=== PATIENT | male | born 1970 | race Asian ===

== ENCOUNTER 2016-03-10 09:02 | Inpatient (IN) | payer OTHER ==
[~2016-03-10] VITALS: Ht 175.3 cm; Wt 60.8 kg
[~2016-03-10 09:02] MED LIST: AMLO10TA2 PO; CINA90TA PO; CLO01T PO; FURO20TA PO; MAGN84TA4 PO; MULT-397 PO; OMEP20TA63 PO; PRED5PAK2 PO; PROGRAF PO; SEVE800T PO; SIMV10TA73 PO; TACR1CAP4 PO; TAM04C PO; [UNRECOGNIZED DRUG - CODE] EX; [UNRECOGNIZED DRUG - CODE] PO
[2016-03-10 09:56] LABS: Basophils # (auto) 0 uL; Basophils % (auto) 0.3 % (0.0-2.0); Eosinophils # (auto) 0.3 uL; Eosinophils % (auto) 3.7 % (0.0-7.0); Hematocrit 34.8 % (41.0-53.0); Hemoglobin 11.2 g/dL (13.5-17.5); Lymphocytes # (auto) 1.1 uL; Lymphocytes % (auto) 15.9 % (10.0-50.0); Mean Corpuscular Hgb Conc. 32.1 g/dL (32.0-36.0); Mean Corpuscular Volume 96.5 fL (80.0-100.0); Mean Platelet Volume 7.3 fL (7.4-10.4); Monocytes # (auto) 0.3 uL; Monocytes % (auto) 4.7 % (0.0-12.0); Neutrophils # (auto) 5.2 uL; Neutrophils % (auto) 75.4 % (37.0-80.0); Platelet Count (auto) 220 10^3/uL (140-450); Red Cell Distribution Width 15.1 % (11.6-16.0); White Blood Cell 6.9 10^3/uL (4.4-10.8)
[2016-03-10 10:20] LABS: Albumin 3.6 g/dL (3.4-5.0); BUN/Creatinine Ratio 3.1; Bilirubin, Total 0.6 mg/dL (0.2-1.0); Calcium 9.2 mg/dL (8.5-10.1); Magnesium 2.2 mg/dL (1.6-2.6); Potassium 3.8 mmol/L (3.5-5.1); Total Protein 8.3 g/dL (6.4-8.2)
[2016-03-10] MEDS ORDERED: MORPHINE SULFATE 4 MG/ML SYRG IV ONE ×2 (10:30→13:45)
[2016-03-10] MEDS ORDERED: ONDANSETRON HCL 4 MG/2 ML VIAL IV ONE ×2 (10:30→13:45)
[2016-03-10] MEDS ORDERED: cloNIDine HCL 0.1 MG TAB PO PRN (15:15)
[2016-03-10] MEDS ORDERED: amLODIPine BESYLATE 5 MG TAB PO ONE (15:30)
[2016-03-10] MEDS ORDERED: DEXTROSE (50%) 50ML SYRG IV PRN (15:30)
[2016-03-10] MEDS ORDERED: ONDANSETRON HCL 4 MG/2 ML VIAL IV PRN (15:30)
[2016-03-10] MEDS ORDERED: B-COMPLEX W/ C & FOLIC ACID(NEPHROVITE TAB) PO ONE (15:30)
[2016-03-10] MEDS ORDERED: ALLOPURINOL 100 MG TAB PO ONE (15:30)
[2016-03-10] MEDS ORDERED: PANTOPRAZOLE 40 MG TAB PO ONE (15:30)
[2016-03-10] MEDS ORDERED: NITROGLYCERIN 0.4 MG SL TAB SL PRN (15:30)
[2016-03-10] MEDS ORDERED: FUROSEMIDE 20 MG TAB PO ONE (15:30)
[2016-03-10] MEDS ORDERED: HYDROcodone-ACET 5/325MG TAB PO PRN (15:30)
[2016-03-10] MEDS ORDERED: cefTRIAXone 1GM/50ML D5W 50 ML IV ONE (15:30)
[2016-03-10] MEDS ORDERED: PROMETHAZINE HCL 25 MG/ML 1ML IV PRN (15:30)
[2016-03-10] MEDS ORDERED: MORPHINE SULF INJ 2 MG/ML SYRINGE 1ML IV PRN (15:30)
[2016-03-10] MEDS ORDERED: predniSONE 5 MG TAB PO ONE (15:30)
[2016-03-10] MEDS ORDERED: ACETAMINOPHEN 325 MG TAB PO PRN (15:30)
[2016-03-10] MEDS ORDERED: TEMAZEPAM 15 MG CAP PO PRN (15:30)
[2016-03-10] MEDS ORDERED: DOCUSATE SOD 100 MG CAP PO PRN (15:30)
[2016-03-10] MEDS: InsuLIN REG 1unit/0.01ml Soln (100units/ml) SC SCH ×2 (17:00→22:00)
[2016-03-10] MEDS: ACCU-CHEK COMFORT CURVE STRIP VI SCH ×2 (17:00→22:10)
[2016-03-10 17:32] VITALS: BP 174/96
[2016-03-10] MEDS: SEVELAMER 800 MG TAB PO SCH (17:54)
[2016-03-10] MEDS: TAMSULOSIN HYDROCHLORIDE 0.4 MG CAP PO SCH (17:54)
[2016-03-10] MEDS: MAG PO SCH ×2 (17:58→22:00)
[2016-03-10 21:46] VITALS: BP 135/69
[2016-03-10] MEDS ORDERED: FAMOTIDINE 20 MG TAB PO SCH (22:00)
[2016-03-10] MEDS ORDERED: TACROLIMUS 1 MG CAP PO SCH (22:00)
[2016-03-10] MEDS: TACROLIMUS 1 MG CAP PO SCH (22:10)
[2016-03-10] MEDS: ATORVASTATIN 20 MG TAB PO SCH (22:10)
[2016-03-10] MEDS: SODIUM CHLOR 0.9% PF (SALINE LOCK) 10ML VIAL IV SCH (22:11)
[2016-03-11 05:43] VITALS: BP 134/71
[2016-03-11] MEDS: MAG PO SCH ×4 (06:00→22:00)
[2016-03-11] MEDS: SODIUM CHLOR 0.9% PF (SALINE LOCK) 10ML VIAL IV SCH ×3 (06:02→22:03)
[2016-03-11] MEDS: ACCU-CHEK COMFORT CURVE STRIP VI SCH ×2 (06:43→11:34)
[2016-03-11] MEDS: InsuLIN REG 1unit/0.01ml Soln (100units/ml) SC SCH ×2 (06:43→11:30)
[2016-03-11 06:47] LABS: Basophils # (auto) 0 uL; Basophils % (auto) 0.5 % (0.0-2.0); Eosinophils # (auto) 0.1 uL; Eosinophils % (auto) 2.5 % (0.0-7.0); Hematocrit 30.3 % (41.0-53.0); Hemoglobin 9.9 g/dL (13.5-17.5); Lymphocytes % (auto) 17.1 % (10.0-50.0); Mean Corpuscular Hemoglobin 31.2 pg (28.0-32.0); Mean Corpuscular Hgb Conc. 32.7 g/dL (32.0-36.0); Mean Corpuscular Volume 95.3 fL (80.0-100.0); Monocytes # (auto) 0.5 uL; Monocytes % (auto) 8.3 % (0.0-12.0); Neutrophils # (auto) 4.1 uL; Neutrophils % (auto) 71.6 % (37.0-80.0); Platelet Count (auto) 182 10^3/uL (140-450); Red Cell Distribution Width 15.2 % (11.6-16.0); White Blood Cell 5.7 10^3/uL (4.4-10.8)
[2016-03-11 07:09] LABS: Albumin 2.9 g/dL (3.4-5.0); Calcium 8.6 mg/dL (8.5-10.1); Potassium 5.2 mmol/L (3.5-5.1)
[2016-03-11 07:18] LABS: BUN/Creatinine Ratio 4.3; Bilirubin, Total 0.5 mg/dL (0.2-1.0); Total Protein 7.4 g/dL (6.4-8.2)
[2016-03-11 08:36] VITALS: BP 130/76
[2016-03-11] MEDS: MORPHINE SULF INJ 2 MG/ML SYRINGE 1ML IV PRN ×3 (08:51→18:08)
[2016-03-11] MEDS: SEVELAMER 800 MG TAB PO SCH ×3 (08:56→17:34)
[2016-03-11] MEDS: cefTRIAXone 1GM/50ML D5W 50 ML IV SCH (08:57)
[2016-03-11] MEDS: SENSIPAR 90 MG PO SCH (10:00)
[2016-03-11] MEDS: PANTOPRAZOLE 40 MG TAB PO SCH (10:38)
[2016-03-11] MEDS: B-COMPLEX W/ C & FOLIC ACID(NEPHROVITE TAB) PO SCH (10:38)
[2016-03-11] MEDS: FUROSEMIDE 20 MG TAB PO SCH (10:39)
[2016-03-11] MEDS: predniSONE 5 MG TAB PO SCH (10:39)
[2016-03-11] MEDS: amLODIPine BESYLATE 5 MG TAB PO SCH (10:39)
[2016-03-11] MEDS: ALLOPURINOL 100 MG TAB PO SCH (10:39)
[2016-03-11] MEDS: TACROLIMUS 1 MG CAP PO SCH ×2 (11:29→22:04)
[2016-03-11 13:00] VITALS: BP 127/78
[2016-03-11] MEDS: TAMSULOSIN HYDROCHLORIDE 0.4 MG CAP PO SCH (17:33)
[2016-03-11 17:35] VITALS: BP 151/85
[2016-03-11 22:00] VITALS: BP 140/88
[2016-03-11] MEDS: ATORVASTATIN 20 MG TAB PO SCH (22:04)
[2016-03-12 05:00] VITALS: BP 155/91
[2016-03-12] MEDS: SODIUM CHLOR 0.9% PF (SALINE LOCK) 10ML VIAL IV SCH ×3 (05:44→21:23)
[2016-03-12] MEDS: MAG PO SCH ×4 (05:44→21:23)
[2016-03-12] MEDS: MORPHINE SULF INJ 2 MG/ML SYRINGE 1ML IV PRN ×4 (05:45→17:01)
[2016-03-12 05:59] LABS: Basophils # (auto) 0 uL; Basophils % (auto) 0.4 % (0.0-2.0); Eosinophils # (auto) 0.2 uL; Eosinophils % (auto) 2.7 % (0.0-7.0); Hematocrit 32.1 % (41.0-53.0); Hemoglobin 10.4 g/dL (13.5-17.5); Lymphocytes # (auto) 0.8 uL; Lymphocytes % (auto) 13.6 % (10.0-50.0); Mean Corpuscular Hemoglobin 31.2 pg (28.0-32.0); Mean Corpuscular Hgb Conc. 32.5 g/dL (32.0-36.0); Mean Corpuscular Volume 95.8 fL (80.0-100.0); Mean Platelet Volume 7.3 fL (7.4-10.4); Monocytes # (auto) 0.4 uL; Monocytes % (auto) 6.3 % (0.0-12.0); Neutrophils # (auto) 4.7 uL; Platelet Count (auto) 193 10^3/uL (140-450); White Blood Cell 6.1 10^3/uL (4.4-10.8)
[2016-03-12 06:19] LABS: Calcium 8.2 mg/dL (8.5-10.1)
[2016-03-12 06:27] LABS: BUN/Creatinine Ratio 4.5
[2016-03-12 08:52] VITALS: BP 160/80
[2016-03-12] MEDS: cefTRIAXone 1GM/50ML D5W 50 ML IV SCH (09:38)
[2016-03-12] MEDS: ALLOPURINOL 100 MG TAB PO SCH (09:39)
[2016-03-12] MEDS: predniSONE 5 MG TAB PO SCH (09:39)
[2016-03-12] MEDS: amLODIPine BESYLATE 5 MG TAB PO SCH (09:39)
[2016-03-12] MEDS: PANTOPRAZOLE 40 MG TAB PO SCH (09:39)
[2016-03-12] MEDS: SEVELAMER 800 MG TAB PO SCH ×3 (09:39→18:23)
[2016-03-12] MEDS: B-COMPLEX W/ C & FOLIC ACID(NEPHROVITE TAB) PO SCH (09:40)
[2016-03-12] MEDS: SENSIPAR 90 MG PO SCH (09:51)
[2016-03-12] MEDS: FUROSEMIDE 20 MG TAB PO SCH (09:51)
[2016-03-12] MEDS ORDERED: EPOETIN ALFA 3,000 UNIT/1 ML VIAL IV ONE ×2 (12:45→13:00)
[2016-03-12] MEDS ORDERED: EPOETIN ALFA 2,000 UNIT/1 ML VIAL IV ONE (13:00)
[2016-03-12 14:15] VITALS: BP 158/80
[2016-03-12] MEDS: TACROLIMUS 1 MG CAP PO SCH ×2 (16:36→21:22)
[2016-03-12 17:06] VITALS: BP 142/72
[2016-03-12 18:15] VITALS: BP 142/72
[2016-03-12] MEDS: TAMSULOSIN HYDROCHLORIDE 0.4 MG CAP PO SCH (18:23)
[2016-03-12 20:00] VITALS: BP 150/92
[2016-03-12] MEDS ORDERED: predniSONE 1 MG TAB PO ONE (21:00)
[2016-03-12] MEDS ORDERED: predniSONE 20 MG TAB PO ONE (21:00)
[2016-03-12] MEDS: ATORVASTATIN 20 MG TAB PO SCH (21:22)
[2016-03-13] MEDS ORDERED: predniSONE 1 MG TAB PO ONE ×2 (01:00→07:00)
[2016-03-13] MEDS ORDERED: predniSONE 20 MG TAB PO ONE ×2 (01:00→07:00)
[2016-03-13 05:34] VITALS: BP 150/79
[2016-03-13 05:49] LABS: Basophils # (auto) 0 uL; Eosinophils # (auto) 0 uL; Hematocrit 32.5 % (41.0-53.0); Hemoglobin 10.6 g/dL (13.5-17.5); Lymphocytes # (auto) 0.3 uL; Lymphocytes % (auto) 5.4 % (10.0-50.0); Mean Corpuscular Hemoglobin 30.9 pg (28.0-32.0); Mean Corpuscular Hgb Conc. 32.5 g/dL (32.0-36.0); Mean Platelet Volume 7.7 fL (7.4-10.4); Monocytes # (auto) 0 uL; Neutrophils # (auto) 4.5 uL; Neutrophils % (auto) 93.6 % (37.0-80.0); Platelet Count (auto) 194 10^3/uL (140-450); Red Cell Distribution Width 15.4 % (11.6-16.0); White Blood Cell 4.8 10^3/uL (4.4-10.8)
[2016-03-13] MEDS: MAG PO SCH ×3 (06:00→18:00)
[2016-03-13 06:07] LABS: BUN/Creatinine Ratio 4.5; Calcium 8.4 mg/dL (8.5-10.1)
[2016-03-13 06:27] LABS: Potassium 5.7 mmol/L (3.5-5.1)
[2016-03-13] MEDS: SODIUM CHLOR 0.9% PF (SALINE LOCK) 10ML VIAL IV SCH ×2 (06:34→14:00)
[2016-03-13] MEDS ORDERED: IOHEXOL 350 MG/ML 100ML IJ ONE ×2 (06:57→08:00)
[2016-03-13] MEDS ORDERED: diphenhdrAMINE HCL 25 MG CAP PO ONE (07:00)
[2016-03-13 07:43] VITALS: BP 159/93
[2016-03-13] MEDS ORDERED: CALCIUM GLUC 4.65 MEQ/10ML 4.65 MEQ in SODIUM CHL 0.9% 50 ML IV ONE (07:45)
[2016-03-13] MEDS ORDERED: SODIUM BICARBONATE 8.4 % INJ 50ML VIAL IV ONE (07:45)
[2016-03-13] MEDS ORDERED: InsuLIN REG 1unit/0.01ml Soln (100units/ml) IV ONE (07:45)
[2016-03-13] MEDS ORDERED: DEXTROSE (50%) 50ML SYRG IV ONE (07:45)
[2016-03-13] MEDS ORDERED: diphenhdrAMINE HCL 50 MG/1 ML VL ONE (07:59)
[2016-03-13] MEDS: SEVELAMER 800 MG TAB PO SCH ×3 (08:00→18:00)
[2016-03-13] MEDS: cefTRIAXone 1GM/50ML D5W 50 ML IV SCH (09:00)
[2016-03-13] MEDS: PANTOPRAZOLE 40 MG TAB PO SCH (10:00)
[2016-03-13] MEDS: FUROSEMIDE 20 MG TAB PO SCH (10:00)
[2016-03-13] MEDS: SENSIPAR 90 MG PO SCH (10:00)
[2016-03-13] MEDS: amLODIPine BESYLATE 5 MG TAB PO SCH (10:00)
[2016-03-13] MEDS: ALLOPURINOL 100 MG TAB PO SCH (10:00)
[2016-03-13] MEDS: B-COMPLEX W/ C & FOLIC ACID(NEPHROVITE TAB) PO SCH (10:00)
[2016-03-13] MEDS: TACROLIMUS 1 MG CAP PO SCH (10:00)
[2016-03-13 12:00] VITALS: BP 131/81
[2016-03-13] MEDS ORDERED: EPOETIN ALFA 3,000 UNIT/1 ML VIAL IV ONE (12:30)
[2016-03-13] MEDS ORDERED: SODIUM CHL 0.9% 1000 ML BAG XX ONE (12:30)
[2016-03-13] MEDS ORDERED: DOXY-216 PO (15:21)
[2016-03-13 16:39] VITALS: BP 100/68
[2016-03-13] MEDS: TAMSULOSIN HYDROCHLORIDE 0.4 MG CAP PO SCH (18:00)
== END 2016-03-13 18:50 | disposition home or self-care (01) | DRG 139 ==
LOC: EDUNIT# 09:02 → ER 09:07 → TELE 09:08 → TELE-E-ADS 17:05 → TELE-EAST 17:31
PROVIDERS: ADMIT Internal Medicine; ATTEND Internal Medicine
PROC: 5A1D60Z (ICD-10-PCS; principal; 2016-03-12)
DX: J18.9 Pneumonia, unspecified organism (principal); I13.2 Hypertensive heart and chronic kidney disease with heart failure and with stage 5 chronic kidney disease, or end stage renal disease; J90 Pleural effusion, not elsewhere classified; J20.9 Acute bronchitis, unspecified; N18.6 End stage renal disease; I50.32 Chronic diastolic (congestive) heart failure; R07.89 Other chest pain; E78.5 Hyperlipidemia, unspecified; K21.9 Gastro-esophageal reflux disease without esophagitis; M10.9 Gout, unspecified; N40.0 Benign prostatic hyperplasia without lower urinary tract symptoms; H54.8 Legal blindness, as defined in USA; D63.8 Anemia in other chronic diseases classified elsewhere; I35.1 Nonrheumatic aortic (valve) insufficiency; W19.XXXA Unspecified fall, initial encounter; Y92.008 Other place in unspecified non-institutional (private) residence as the place of occurrence of the external cause; Z91.041 Radiographic dye allergy status; Q61.2 Polycystic kidney, adult type; Z99.2 Dependence on renal dialysis; Z80.0 Family history of malignant neoplasm of digestive organs; Z82.1 Family history of blindness and visual loss; Z94.0 Kidney transplant status; Z84.1 Family history of disorders of kidney and ureter; Z79.899 Other long term (current) drug therapy; Z98.890 Other specified postprocedural states
CPT/HCPCS: 36415; 71020; 71101; 71250; 71275; 78582; 80048; 80053; 82962; 83036; 83735; 84132; 84484; 85025; 85049; 85379; 87081; 90935; 93005; 93970; 96374; 96375; 96376; 97001; J0696; J1642; J2405; J7507; Q4081

== ENCOUNTER 2016-04-26 18:12 | Inpatient (IN) | payer OTHER ==
[~2016-04-26] VITALS: Ht 170.2 cm; Wt 84.1 kg
[~2016-04-26 18:12] MED LIST changes: +DOXY-216 PO; -MAGN84TA4 PO
[2016-04-26 19:22] LABS: Basophils # (auto) 0 uL; Basophils % (auto) 0.7 % (0.0-2.0); Eosinophils # (auto) 0.5 uL; Eosinophils % (auto) 7.2 % (0.0-7.0); Hematocrit 30.8 % (41.0-53.0); Hemoglobin 10.2 g/dL (13.5-17.5); Lymphocytes % (auto) 14.5 % (10.0-50.0); Mean Corpuscular Hemoglobin 31.1 pg (28.0-32.0); Mean Corpuscular Volume 94.1 fL (80.0-100.0); Mean Platelet Volume 6.4 fL (7.4-10.4); Monocytes # (auto) 0.5 uL; Monocytes % (auto) 7.9 % (0.0-12.0); Neutrophils # (auto) 4.6 uL; Neutrophils % (auto) 69.7 % (37.0-80.0); Platelet Count (auto) 261 10^3/uL (140-450); Red Cell Distribution Width 15.3 % (11.6-16.0); White Blood Cell 6.6 10^3/uL (4.4-10.8)
[2016-04-26 19:51] LABS: Albumin 3.3 g/dL (3.4-5.0); Amylase 149 U/L (25-115); Calcium 8.7 mg/dL (8.5-10.1); Potassium 5.2 mmol/L (3.5-5.1)
[2016-04-26 19:56] LABS: Bilirubin, Total 0.7 mg/dL (0.2-1.0); Total Protein 7.9 g/dL (6.4-8.2)
[2016-04-26] MEDS ORDERED: cloNIDine HCL 0.1 MG TAB PO ONE (20:45)
[2016-04-26] MEDS ORDERED: ALBUTEROL SULF 2.5 MG/0.5ML(0.5%) NEB SOLN NEB ONE (21:00)
[2016-04-26] MEDS ORDERED: IPRATROPIUM BROM 0.5 MG/2.5ML INH SOL NEB ONE (21:00)
[2016-04-26] MEDS ORDERED: MORPHINE SULF INJ 2 MG/ML SYRINGE 1ML IV ONE (23:30)
[2016-04-26] MEDS ORDERED: ONDANSETRON HCL 4 MG/2 ML VIAL IV ONE (23:30)
[2016-04-27] VITALS (8 sets, daily range): BP systolic 104–155; BP diastolic 53–90
[2016-04-27] MEDS ORDERED: NITROGLYCERIN 0.4 MG SL TAB SL PRN (00:45)
[2016-04-27] MEDS ORDERED: cloNIDine HCL 0.1 MG TAB PO PRN (00:45)
[2016-04-27] MEDS ORDERED: MORPHINE SULF INJ 2 MG/ML SYRINGE 1ML IV PRN (00:45)
[2016-04-27] MEDS ORDERED: cefTRIAXone 1GM/50ML D5W 50 ML IV ONE (00:45)
[2016-04-27 01:39] LABS: B-Type Natriuretic Peptide 822.52 pg/mL (0-100); Temperature: 22.5 C (20.0-25.0)
[2016-04-27] MEDS: MORPHINE SULF INJ 2 MG/ML SYRINGE 1ML IV PRN ×4 (08:21→20:58)
[2016-04-27] MEDS ORDERED: FAMOTIDINE 20 MG TAB PO SCH (10:00)
[2016-04-27] MEDS: ENOXAPARIN SOD 30 MG/0.3 ML SYRINGE SC SCH (10:52)
[2016-04-27] MEDS: FAMOTIDINE 20 MG TAB PO SCH (10:52)
[2016-04-27] MEDS: FUROSEMIDE 40 MG TAB PO SCH (10:52)
[2016-04-27] MEDS: ALLOPURINOL 100 MG TAB PO SCH (10:52)
[2016-04-27] MEDS: amLODIPine BESYLATE 5 MG TAB PO SCH (10:53)
[2016-04-27] MEDS: TACROLIMUS 1 MG CAP PO SCH ×2 (11:31→22:59)
[2016-04-27] MEDS: ALBUTEROL SULF 2.5 MG/0.5ML(0.5%) NEB SOLN NEB PRN ×2 (15:00→18:06)
[2016-04-27] MEDS: TAMSULOSIN HYDROCHLORIDE 0.4 MG CAP PO SCH (17:01)
[2016-04-27] MEDS: ONDANSETRON HCL 4 MG/2 ML VIAL IV PRN (17:59)
[2016-04-27 18:43] LABS: BUN/Creatinine Ratio 5.1; Calcium 8.7 mg/dL (8.5-10.1)
[2016-04-27 19:02] LABS: Potassium 5.6 mmol/L (3.5-5.1)
[2016-04-27] MEDS ORDERED: PATIENTS OWN MEDICATION (simvastatin 10 MG) PO SCH ×2 (22:00)
[2016-04-27] MEDS ORDERED: cefTRIAXone 1GM/50ML D5W 50 ML IV SCH (22:00)
[2016-04-27] MEDS: PRAVASTATIN SODIUM 20 MG TAB PO SCH (22:59)
[2016-04-28] MEDS: ALBUTEROL SULF 2.5 MG/0.5ML(0.5%) NEB SOLN NEB PRN ×3 (00:28→10:59)
[2016-04-28] MEDS: MORPHINE SULF INJ 2 MG/ML SYRINGE 1ML IV PRN ×6 (00:55→22:28)
[2016-04-28 05:30] VITALS: BP 134/75
[2016-04-28 06:28] LABS: Basophils # (auto) 0 uL; Basophils % (auto) 0.3 % (0.0-2.0); Eosinophils # (auto) 0.4 uL; Eosinophils % (auto) 7.1 % (0.0-7.0); Hematocrit 26.4 % (41.0-53.0); Hemoglobin 8.7 g/dL (13.5-17.5); Lymphocytes # (auto) 0.7 uL; Lymphocytes % (auto) 11.2 % (10.0-50.0); Mean Corpuscular Hemoglobin 31.2 pg (28.0-32.0); Mean Corpuscular Hgb Conc. 32.9 g/dL (32.0-36.0); Mean Corpuscular Volume 94.7 fL (80.0-100.0); Monocytes # (auto) 0.4 uL; Monocytes % (auto) 6.6 % (0.0-12.0); Neutrophils # (auto) 4.4 uL; Neutrophils % (auto) 74.8 % (37.0-80.0); Platelet Count (auto) 187 10^3/uL (140-450); Red Cell Distribution Width 15.6 % (11.6-16.0); White Blood Cell 5.8 10^3/uL (4.4-10.8)
[2016-04-28 07:07] LABS: Albumin 2.9 g/dL (3.4-5.0); Calcium 8.4 mg/dL (8.5-10.1); Potassium 4.9 mmol/L (3.5-5.1)
[2016-04-28 07:17] LABS: Bilirubin, Total 0.6 mg/dL (0.2-1.0); Total Protein 7.1 g/dL (6.4-8.2)
[2016-04-28 09:00] VITALS: BP 156/80
[2016-04-28] MEDS: FAMOTIDINE 20 MG TAB PO SCH (09:52)
[2016-04-28] MEDS: ALLOPURINOL 100 MG TAB PO SCH (09:52)
[2016-04-28] MEDS: FUROSEMIDE 40 MG TAB PO SCH (09:52)
[2016-04-28] MEDS: amLODIPine BESYLATE 5 MG TAB PO SCH (09:53)
[2016-04-28] MEDS: ONDANSETRON HCL 4 MG/2 ML VIAL IV PRN ×3 (09:53→18:26)
[2016-04-28] MEDS: ENOXAPARIN SOD 30 MG/0.3 ML SYRINGE SC SCH (09:53)
[2016-04-28 13:00] VITALS: BP 144/76
[2016-04-28] MEDS: TACROLIMUS 1 MG CAP PO SCH ×2 (14:10→22:28)
[2016-04-28] MEDS: HYDROcodone-ACET 5/325MG TAB PO PRN (15:53)
[2016-04-28 17:00] VITALS: BP 136/85
[2016-04-28] MEDS: TAMSULOSIN HYDROCHLORIDE 0.4 MG CAP PO SCH (18:00)
[2016-04-28 21:30] VITALS: BP 141/74
[2016-04-28] MEDS: PRAVASTATIN SODIUM 20 MG TAB PO SCH (22:28)
[2016-04-29] MEDS: MORPHINE SULF INJ 2 MG/ML SYRINGE 1ML IV PRN ×5 (02:32→22:04)
[2016-04-29 05:00] VITALS: BP 141/80
[2016-04-29 09:00] VITALS: BP 133/82
[2016-04-29] MEDS: ENOXAPARIN SOD 30 MG/0.3 ML SYRINGE SC SCH (09:26)
[2016-04-29] MEDS: amLODIPine BESYLATE 5 MG TAB PO SCH (09:27)
[2016-04-29] MEDS: ALLOPURINOL 100 MG TAB PO SCH (09:28)
[2016-04-29] MEDS: FUROSEMIDE 40 MG TAB PO SCH (09:28)
[2016-04-29] MEDS: FAMOTIDINE 20 MG TAB PO SCH (09:28)
[2016-04-29] MEDS: TACROLIMUS 1 MG CAP PO SCH ×2 (09:33→22:04)
[2016-04-29] MEDS: ONDANSETRON HCL 4 MG/2 ML VIAL IV PRN (12:20)
[2016-04-29 14:14] LABS: INR 1.15 (0.9-1.15); Partial Thromboplastin Time 31.5 sec (22.64-33.71); Prothrombin Time 11.8 sec (9.37-12.3)
[2016-04-29 17:00] VITALS: BP 104/63
[2016-04-29 17:11] VITALS: BP 139/61
[2016-04-29] MEDS: TAMSULOSIN HYDROCHLORIDE 0.4 MG CAP PO SCH (18:03)
[2016-04-29 22:00] VITALS: BP 110/66
[2016-04-29] MEDS: PRAVASTATIN SODIUM 20 MG TAB PO SCH (22:04)
[2016-04-29 23:37] VITALS: BP 104/63
[2016-04-30] VITALS (8 sets, daily range): BP systolic 109–120; BP diastolic 60–74
[2016-04-30] MEDS: HYDROcodone-ACET 5/325MG TAB PO PRN (01:34)
[2016-04-30] MEDS: ALBUTEROL SULF 2.5 MG/0.5ML(0.5%) NEB SOLN NEB PRN ×2 (01:57→06:54)
[2016-04-30] MEDS ORDERED: PROMETHAZINE HCL 6.25 MG/5 ML ORAL SYRUP PO ONE (02:15)
[2016-04-30 06:25] LABS: Basophils # (auto) 0 uL; Basophils % (auto) 0.3 % (0.0-2.0); Eosinophils # (auto) 0.4 uL; Eosinophils % (auto) 7.4 % (0.0-7.0); Hematocrit 25.8 % (41.0-53.0); Hemoglobin 8.7 g/dL (13.5-17.5); Lymphocytes # (auto) 0.6 uL; Lymphocytes % (auto) 11.5 % (10.0-50.0); Mean Corpuscular Hemoglobin 31.8 pg (28.0-32.0); Mean Corpuscular Hgb Conc. 33.8 g/dL (32.0-36.0); Mean Corpuscular Volume 93.8 fL (80.0-100.0); Mean Platelet Volume 7.2 fL (7.4-10.4); Monocytes # (auto) 0.4 uL; Monocytes % (auto) 7.5 % (0.0-12.0); Neutrophils # (auto) 3.6 uL; Neutrophils % (auto) 73.3 % (37.0-80.0); Platelet Count (auto) 188 10^3/uL (140-450); Red Cell Distribution Width 14.9 % (11.6-16.0); White Blood Cell 4.9 10^3/uL (4.4-10.8)
[2016-04-30 06:58] LABS: Potassium 4.7 mmol/L (3.5-5.1)
[2016-04-30 07:11] LABS: BUN/Creatinine Ratio 3.8; Calcium 8.3 mg/dL (8.5-10.1)
[2016-04-30] MEDS: FUROSEMIDE 40 MG TAB PO SCH (09:58)
[2016-04-30] MEDS: TACROLIMUS 1 MG CAP PO SCH ×2 (09:59→22:13)
[2016-04-30] MEDS: FAMOTIDINE 20 MG TAB PO SCH (09:59)
[2016-04-30] MEDS: ALLOPURINOL 100 MG TAB PO SCH (09:59)
[2016-04-30] MEDS: amLODIPine BESYLATE 5 MG TAB PO SCH (09:59)
[2016-04-30] MEDS: ENOXAPARIN SOD 30 MG/0.3 ML SYRINGE SC SCH (10:00)
[2016-04-30] MEDS ORDERED: HEPARIN 1,000 UNITS/ml 1ML VIAL IV ONE (12:00)
[2016-04-30] MEDS: TAMSULOSIN HYDROCHLORIDE 0.4 MG CAP PO SCH (18:00)
[2016-04-30] MEDS: MORPHINE SULF INJ 2 MG/ML SYRINGE 1ML IV PRN (18:42)
[2016-04-30] MEDS: PRAVASTATIN SODIUM 20 MG TAB PO SCH (22:13)
[2016-05-01] VITALS (7 sets, daily range): BP systolic 93–136; BP diastolic 55–75
[2016-05-01] MEDS: HYDROcodone-ACET 5/325MG TAB PO PRN ×2 (06:01→19:57)
[2016-05-01] MEDS ORDERED: GABA-494 PO (09:03)
[2016-05-01] MEDS: amLODIPine BESYLATE 5 MG TAB PO SCH (09:40)
[2016-05-01] MEDS: FUROSEMIDE 40 MG TAB PO SCH (09:41)
[2016-05-01] MEDS: ENOXAPARIN SOD 30 MG/0.3 ML SYRINGE SC SCH (09:41)
[2016-05-01] MEDS: ALLOPURINOL 100 MG TAB PO SCH (10:00)
[2016-05-01] MEDS: TACROLIMUS 1 MG CAP PO SCH ×2 (10:27→22:10)
[2016-05-01] MEDS: FAMOTIDINE 20 MG TAB PO SCH (10:27)
[2016-05-01] MEDS ORDERED: HYDROmorphone HCL 2 MG/ML VL IV ONE ×2 (11:00→12:00)
[2016-05-01] MEDS: TAMSULOSIN HYDROCHLORIDE 0.4 MG CAP PO SCH (17:55)
[2016-05-01] MEDS: PRAVASTATIN SODIUM 20 MG TAB PO SCH (22:10)
[2016-05-02] VITALS (7 sets, daily range): BP systolic 107–131; BP diastolic 68–91
[2016-05-02] MEDS: MORPHINE SULF INJ 2 MG/ML SYRINGE 1ML IV PRN (08:54)
[2016-05-02] MEDS: ENOXAPARIN SOD 30 MG/0.3 ML SYRINGE SC SCH (10:00)
[2016-05-02] MEDS: FUROSEMIDE 40 MG TAB PO SCH (10:00)
[2016-05-02] MEDS: ALLOPURINOL 100 MG TAB PO SCH (10:57)
[2016-05-02] MEDS: FAMOTIDINE 20 MG TAB PO SCH (10:57)
[2016-05-02] MEDS: TACROLIMUS 1 MG CAP PO SCH ×2 (10:57→21:25)
[2016-05-02] MEDS: amLODIPine BESYLATE 5 MG TAB PO SCH (17:42)
[2016-05-02] MEDS: BOOST PLUS 8 ounce PO SCH ×2 (17:43→21:24)
[2016-05-02] MEDS ORDERED: SEVELAMER 800 MG TAB PO SCH (18:00)
[2016-05-02] MEDS: SEVELAMER 800 MG TAB PO SCH (20:19)
[2016-05-02] MEDS: GABAPENTIN 100 MG CAP PO SCH (21:24)
[2016-05-02] MEDS: TAMSULOSIN HYDROCHLORIDE 0.4 MG CAP PO SCH (21:24)
[2016-05-02] MEDS: PRAVASTATIN SODIUM 20 MG TAB PO SCH (21:24)
[2016-05-02] MEDS: ACETAMINOPHEN 325 MG TAB PO PRN (21:34)
[2016-05-03] VITALS (7 sets, daily range): BP systolic 107–136; BP diastolic 63–91
[2016-05-03] MEDS: BOOST PLUS 8 ounce PO SCH ×4 (06:00→22:10)
[2016-05-03] MEDS: GABAPENTIN 100 MG CAP PO SCH ×3 (06:16→22:11)
[2016-05-03 06:28] LABS: Basophils # (auto) 0 uL; Basophils % (auto) 0.1 % (0.0-2.0); DEFINITIVE VIEW TRANSMISSION; Eosinophils # (auto) 0.4 uL; Eosinophils % (auto) 13.4 % (0.0-7.0); Hematocrit 25.3 % (41.0-53.0); Hemoglobin 8.5 g/dL (13.5-17.5); Lymphocytes # (auto) 0.8 uL; Lymphocytes % (auto) 22.9 % (10.0-50.0); Mean Corpuscular Hemoglobin 31.4 pg (28.0-32.0); Mean Corpuscular Hgb Conc. 33.6 g/dL (32.0-36.0); Mean Corpuscular Volume 93.3 fL (80.0-100.0); Mean Platelet Volume 6.7 fL (7.4-10.4); Monocytes # (auto) 0.5 uL; Monocytes % (auto) 13.7 % (0.0-12.0); Neutrophils # (auto) 1.6 uL; Neutrophils % (auto) 49.9 % (37.0-80.0); Platelet Count (auto) 230 10^3/uL (140-450); Red Cell Distribution Width 14.8 % (11.6-16.0); White Blood Cell 3.3 10^3/uL (4.4-10.8)
[2016-05-03 06:56] LABS: Albumin 2.4 g/dL (3.4-5.0); BUN/Creatinine Ratio 2.9; Calcium 8.3 mg/dL (8.5-10.1); Potassium 4.9 mmol/L (3.5-5.1)
[2016-05-03 06:59] LABS: Bilirubin, Total 0.3 mg/dL (0.2-1.0); Total Protein 6.8 g/dL (6.4-8.2)
[2016-05-03] MEDS: ENOXAPARIN SOD 30 MG/0.3 ML SYRINGE SC SCH (08:49)
[2016-05-03] MEDS: SEVELAMER 800 MG TAB PO SCH ×3 (08:50→18:19)
[2016-05-03] MEDS: FUROSEMIDE 40 MG TAB PO SCH (08:50)
[2016-05-03] MEDS: FAMOTIDINE 20 MG TAB PO SCH (08:51)
[2016-05-03] MEDS: ALLOPURINOL 100 MG TAB PO SCH (08:51)
[2016-05-03] MEDS: amLODIPine BESYLATE 5 MG TAB PO SCH (08:51)
[2016-05-03] MEDS: TACROLIMUS 1 MG CAP PO SCH ×2 (08:52→22:11)
[2016-05-03] MEDS: ALBUTEROL SULF 2.5 MG/0.5ML(0.5%) NEB SOLN NEB PRN (15:11)
[2016-05-03] MEDS: TAMSULOSIN HYDROCHLORIDE 0.4 MG CAP PO SCH (18:19)
[2016-05-03] MEDS: PRAVASTATIN SODIUM 20 MG TAB PO SCH (22:11)
[2016-05-04 05:00] VITALS: BP 130/75
[2016-05-04] MEDS: GABAPENTIN 100 MG CAP PO SCH ×3 (05:00→21:59)
[2016-05-04] MEDS: BOOST PLUS 8 ounce PO SCH ×4 (05:00→22:02)
[2016-05-04] MEDS: ACETAMINOPHEN 325 MG TAB PO PRN (05:29)
[2016-05-04] MEDS: ALBUTEROL SULF 2.5 MG/0.5ML(0.5%) NEB SOLN NEB PRN (06:21)
[2016-05-04 06:43] LABS: Hematocrit 26.1 % (41.0-53.0); Hemoglobin 8.6 g/dL (13.5-17.5); Mean Corpuscular Hemoglobin 30.9 pg (28.0-32.0); Mean Corpuscular Volume 93.6 fL (80.0-100.0); Mean Platelet Volume 7.1 fL (7.4-10.4); Platelet Count (auto) 258 10^3/uL (140-450); Red Cell Distribution Width 14.3 % (11.6-16.0); White Blood Cell 3.8 10^3/uL (4.4-10.8)
[2016-05-04 07:04] LABS: Metamyelocytes % 0; Myelocytes % 0; Promyelocytes % 0; Reactive Lymphocytes 0
[2016-05-04 07:18] LABS: Albumin 2.4 g/dL (3.4-5.0); BUN/Creatinine Ratio 4.9; Calcium 8.7 mg/dL (8.5-10.1); Potassium 5.2 mmol/L (3.5-5.1)
[2016-05-04 07:20] LABS: Bilirubin, Total 0.3 mg/dL (0.2-1.0); Total Protein 6.8 g/dL (6.4-8.2)
[2016-05-04] MEDS: SEVELAMER 800 MG TAB PO SCH ×3 (08:12→18:29)
[2016-05-04 08:51] VITALS: BP 131/70
[2016-05-04] MEDS: ALLOPURINOL 100 MG TAB PO SCH (09:57)
[2016-05-04] MEDS: FUROSEMIDE 40 MG TAB PO SCH (09:57)
[2016-05-04] MEDS: ENOXAPARIN SOD 30 MG/0.3 ML SYRINGE SC SCH (09:57)
[2016-05-04] MEDS: FAMOTIDINE 20 MG TAB PO SCH (09:57)
[2016-05-04] MEDS: amLODIPine BESYLATE 5 MG TAB PO SCH (09:58)
[2016-05-04] MEDS: TACROLIMUS 1 MG CAP PO SCH ×2 (09:58→21:59)
[2016-05-04 10:03] LABS: Platelet Estimate Adequate
[2016-05-04 10:04] LABS: Ovalocytes FEW
[2016-05-04 12:44] VITALS: BP 123/72
[2016-05-04 17:14] VITALS: BP 120/70
[2016-05-04] MEDS: TAMSULOSIN HYDROCHLORIDE 0.4 MG CAP PO SCH (18:29)
[2016-05-04 20:10] VITALS: BP 129/70
[2016-05-04] MEDS: PRAVASTATIN SODIUM 20 MG TAB PO SCH (21:59)
[2016-05-04] MEDS: MORPHINE SULF INJ 2 MG/ML SYRINGE 1ML IV PRN (22:02)
[2016-05-05 01:26] VITALS: BP 129/70
[2016-05-05 05:30] VITALS: BP 145/84
[2016-05-05] MEDS: BOOST PLUS 8 ounce PO SCH ×2 (06:26→12:00)
[2016-05-05] MEDS: GABAPENTIN 100 MG CAP PO SCH ×2 (06:27→14:00)
[2016-05-05 06:36] LABS: Basophils # (auto) 0 uL; Basophils % (auto) 0.3 % (0.0-2.0); Eosinophils # (auto) 0.6 uL; Eosinophils % (auto) 13.3 % (0.0-7.0); Hematocrit 26.3 % (41.0-53.0); Hemoglobin 8.7 g/dL (13.5-17.5); Lymphocytes # (auto) 0.8 uL; Lymphocytes % (auto) 18.5 % (10.0-50.0); Mean Corpuscular Hemoglobin 31.1 pg (28.0-32.0); Mean Corpuscular Hgb Conc. 33.2 g/dL (32.0-36.0); Mean Corpuscular Volume 93.5 fL (80.0-100.0); Monocytes # (auto) 0.4 uL; Monocytes % (auto) 10.6 % (0.0-12.0); Neutrophils # (auto) 2.4 uL; Neutrophils % (auto) 57.3 % (37.0-80.0); Platelet Count (auto) 291 10^3/uL (140-450); Red Cell Distribution Width 14.7 % (11.6-16.0); White Blood Cell 4.2 10^3/uL (4.4-10.8)
[2016-05-05 07:07] LABS: Calcium 9.1 mg/dL (8.5-10.1)
[2016-05-05 07:15] LABS: BUN/Creatinine Ratio 5.4
[2016-05-05] MEDS: SEVELAMER 800 MG TAB PO SCH ×2 (08:00→12:00)
[2016-05-05] MEDS ORDERED: EPOETIN ALFA 10,000 UNIT/1 ML VIAL IV ONE (08:00)
[2016-05-05] MEDS ORDERED: SODIUM CHL 0.9% 1000 ML BAG XX ONE (08:00)
[2016-05-05 08:10] LABS: Potassium 5.9 mmol/L (3.5-5.1)
[2016-05-05] MEDS ORDERED: FURO20TA PO (09:54)
[2016-05-05] MEDS: FUROSEMIDE 40 MG TAB PO SCH (10:00)
[2016-05-05] MEDS: TACROLIMUS 1 MG CAP PO SCH (10:00)
[2016-05-05] MEDS: ENOXAPARIN SOD 30 MG/0.3 ML SYRINGE SC SCH (10:00)
[2016-05-05] MEDS: amLODIPine BESYLATE 5 MG TAB PO SCH (10:00)
[2016-05-05] MEDS: FAMOTIDINE 20 MG TAB PO SCH (10:00)
[2016-05-05] MEDS: ALLOPURINOL 100 MG TAB PO SCH (10:00)
[2016-05-05 13:00] VITALS: BP 133/81
[2016-05-05 13:21] VITALS: BP 146/92
[2016-05-05 14:58] VITALS: BP 131/70
== END 2016-05-05 16:00 | disposition home or self-care (01) | DRG 194 ==
LOC: EDBD 18:12 → EDUNIT# 18:12 → ER 18:17 → TELE-CENTR 18:18
PROVIDERS: ADMIT Nurse Practitioner; ATTEND Internal Medicine Pulmonary Disease
PROC: 5A1D60Z (ICD-10-PCS; 2016-04-28)
PROC: 0W993ZZ Drainage of Right Pleural Cavity, Percutaneous Approach (ICD-10-PCS; principal; 2016-04-29)
DX: I13.2 Hypertensive heart and chronic kidney disease with heart failure and with stage 5 chronic kidney disease, or end stage renal disease (principal); E43 Unspecified severe protein-calorie malnutrition; K80.00 Calculus of gallbladder with acute cholecystitis without obstruction; T86.12 Kidney transplant failure; N18.6 End stage renal disease; I50.33 Acute on chronic diastolic (congestive) heart failure; J44.0 Chronic obstructive pulmonary disease with (acute) lower respiratory infection; I42.9 Cardiomyopathy, unspecified; E11.22 Type 2 diabetes mellitus with diabetic chronic kidney disease; E87.1 Hypo-osmolality and hyponatremia; H54.8 Legal blindness, as defined in USA; J20.9 Acute bronchitis, unspecified; D63.1 Anemia in chronic kidney disease; E78.5 Hyperlipidemia, unspecified; E87.5 Hyperkalemia; K21.9 Gastro-esophageal reflux disease without esophagitis; M10.9 Gout, unspecified; K82.8 Other specified diseases of gallbladder; Z80.0 Family history of malignant neoplasm of digestive organs; Z99.2 Dependence on renal dialysis; Z82.1 Family history of blindness and visual loss; Z94.0 Kidney transplant status; Z91.041 Radiographic dye allergy status; Z79.899 Other long term (current) drug therapy; Z68.29 Body mass index [BMI] 29.0-29.9, adult
CPT/HCPCS: 36415; 71010; 71020; 74176; 76604; 76942; 78226; 80048; 80053; 82150; 82962; 83690; 83880; 84484; 85007; 85025; 85027; 85379; 85610; 85730; 90935; 93005; 93970; 94640; 96374; 96375; J0696; J0885; J2405; J7507

== ENCOUNTER 2017-04-16 11:10 | Inpatient (IN) | payer OTHER ==
[2017-04-15] MEDS: SODIUM CHLOR 0.9% PF (SALINE LOCK) 10ML VIAL IV SCH (22:00)
[~2017-04-16] VITALS: Ht 170.2 cm; Wt 58.2 kg
[~2017-04-16 11:10] MED LIST changes: -DOXY-216 PO; +GABA100C9 PO
[2017-04-16] MEDS ORDERED: IPRATROPIUM BROM 0.5 MG/2.5ML INH SOL NEB ONE (12:15)
[2017-04-16] MEDS ORDERED: cefTRIAXone 1GM/10ml IVPUSH 10 ML IV ONE (12:15)
[2017-04-16] MEDS ORDERED: ALBUTEROL SULF 2.5 MG/0.5ML(0.5%) NEB SOLN NEB ONE (12:15)
[2017-04-16] MEDS ORDERED: AZITHROMYCIN 500MG/ 250ML 250 ML IV ONE (12:15)
[2017-04-16 12:36] LABS: Basophils # (auto) 0 uL; Basophils % (auto) 0.7 % (0.0-2.0); Eosinophils # (auto) 0.2 uL; Eosinophils % (auto) 7.3 % (0.0-7.0); Hematocrit 34.4 % (41.0-53.0); Hemoglobin 11.6 g/dL (13.5-17.5); Lymphocytes # (auto) 0.6 uL; Lymphocytes % (auto) 18.3 % (10.0-50.0); Mean Corpuscular Hgb Conc. 33.6 g/dL (32.0-36.0); Mean Corpuscular Volume 98.2 fL (80.0-100.0); Monocytes # (auto) 0.4 uL; Monocytes % (auto) 12.2 % (0.0-12.0); Neutrophils # (auto) 2.1 uL; Neutrophils % (auto) 61.5 % (37.0-80.0); Nucleated Red Blood Cells % 0.1 %; Platelet Count (auto) 144 10^3/uL (140-450); Red Cell Distribution Width 14.9 % (11.8-14.3); White Blood Cell 3.3 10^3/uL (4.4-10.8)
[2017-04-16 12:55] LABS: Albumin 3.4 g/dL (3.4-5.0); BUN/Creatinine Ratio 3.3; Calcium 8.1 mg/dL (8.5-10.1); Magnesium 1.9 mg/dL (1.6-2.6); Potassium 3.8 mmol/L (3.5-5.1)
[2017-04-16 12:58] LABS: Bilirubin, Total 0.5 mg/dL (0.2-1.0); Total Protein 8.4 g/dL (6.4-8.2)
[2017-04-16] MEDS ORDERED: cloNIDine HCL 0.1 MG TAB PO PRN (13:45)
[2017-04-16] MEDS ORDERED: ALBUTEROL SULF 2.5 MG/0.5ML(0.5%) NEB SOLN NEB PRN (13:45)
[2017-04-16] MEDS ORDERED: PIPERACILLIN-TAZOB 2.25GM 50 ML IV ONE (13:45)
[2017-04-16] MEDS ORDERED: TEMAZEPAM 15 MG CAP PO PRN (13:45)
[2017-04-16] MEDS ORDERED: ACETAMINOPHEN 500 MG TAB PO PRN (13:45)
[2017-04-16] MEDS ORDERED: NITROGLYCERIN 0.4 MG SL TAB SL PRN (13:45)
[2017-04-16] MEDS ORDERED: MORPHINE SULFATE 4 MG/ML SYR/VIAL IV PRN ×2 (13:45)
[2017-04-16] MEDS ORDERED: VANCOMYCIN PER PHARMACY 0 MG IV SCH (13:45)
[2017-04-16] MEDS ORDERED: PROMETHAZINE HCL 25 MG/ML 1ML IV PRN (13:45)
[2017-04-16] MEDS ORDERED: LORazepam 0.5 MG TAB PO PRN (13:45)
[2017-04-16] MEDS ORDERED: LACTULOSE 20Gm/30ML SOLN PO PRN (13:45)
[2017-04-16] MEDS ORDERED: OSELTAMIVIR 30 MG CAP PO ONE (14:15)
[2017-04-16] MEDS ORDERED: CINA60TA PO (14:28)
[2017-04-16] MEDS ORDERED: PRE5T PO (14:30)
[2017-04-16] MEDS ORDERED: ALL100T PO (14:39)
[2017-04-16] MEDS: SODIUM CHLOR 0.9% PF (SALINE LOCK) 10ML VIAL IV SCH (14:43)
[2017-04-16] MEDS: GABAPENTIN 100 MG CAP PO SCH ×2 (14:51→22:00)
[2017-04-16] MEDS ORDERED: VANCOMYCIN 1GM/250ML 250 ML IV ONE (16:00)
[2017-04-16 17:11] VITALS: BP 146/79
[2017-04-16] MEDS ORDERED: LEVO25TA6 PO (17:24)
[2017-04-16] MEDS ORDERED: DIPH25CA66 PO (17:24)
[2017-04-16] MEDS ORDERED: FERR-20 PO (17:24)
[2017-04-16] MEDS: TAMSULOSIN HYDROCHLORIDE 0.4 MG CAP PO SCH (18:31)
[2017-04-16] MEDS: SEVELAMER 800 MG TAB PO SCH (18:32)
[2017-04-16] MEDS: ALBUTEROL SULF 2.5 MG/0.5ML(0.5%) NEB SOLN NEB SCH (20:02)
[2017-04-16] MEDS: ATORVASTATIN 20 MG TAB PO SCH (20:31)
[2017-04-16] MEDS: PIPERACILLIN-TAZOB 2.25GM 50 ML IV SCH (20:33)
[2017-04-16] MEDS ORDERED: TACROLIMUS 1 MG CAP PO SCH (22:00)
[2017-04-16] MEDS: CARVEDILOL 3.125 MG TAB PO SCH (22:00)
[2017-04-16] MEDS ORDERED: PROGRAF 2 MG PO SCH (22:00)
[2017-04-16 22:21] VITALS: BP 125/74
[2017-04-17] MEDS: ALBUTEROL SULF 2.5 MG/0.5ML(0.5%) NEB SOLN NEB SCH ×4 (00:15→19:03)
[2017-04-17 02:40] VITALS: BP 125/74
[2017-04-17 05:30] VITALS: BP 142/89
[2017-04-17] MEDS: SODIUM CHLOR 0.9% PF (SALINE LOCK) 10ML VIAL IV SCH ×3 (06:00→22:11)
[2017-04-17 07:07] LABS: Basophils # (auto) 0 uL; Basophils % (auto) 0.3 % (0.0-2.0); Eosinophils # (auto) 0.4 uL; Eosinophils % (auto) 11.1 % (0.0-7.0); Hematocrit 38.3 % (41.0-53.0); Hemoglobin 12.9 g/dL (13.5-17.5); Lymphocytes # (auto) 0.8 uL; Lymphocytes % (auto) 22.5 % (10.0-50.0); Mean Corpuscular Hemoglobin 33.4 pg (28.0-32.0); Mean Corpuscular Hgb Conc. 33.6 g/dL (32.0-36.0); Mean Corpuscular Volume 99.5 fL (80.0-100.0); Monocytes # (auto) 0.4 uL; Monocytes % (auto) 11.4 % (0.0-12.0); Neutrophils % (auto) 54.7 % (37.0-80.0); Platelet Count (auto) 150 10^3/uL (140-450); Red Blood Cells 3.85 10^6/uL (4.5-5.90); Red Cell Distribution Width 14.9 % (11.8-14.3); White Blood Cell 3.7 10^3/uL (4.4-10.8)
[2017-04-17 07:27] LABS: Albumin 3.3 g/dL (3.4-5.0); BUN/Creatinine Ratio 4.7; Bilirubin, Total 0.7 mg/dL (0.2-1.0); Potassium 5.5 mmol/L (3.5-5.1); Total Protein 8.9 g/dL (6.4-8.2)
[2017-04-17] MEDS: SEVELAMER 800 MG TAB PO SCH ×3 (08:15→18:23)
[2017-04-17 09:00] VITALS: BP 143/84
[2017-04-17] MEDS ORDERED: SODIUM POLYSTYRENE SULF 15GM/60ML SUSP PO ONE (09:45)
[2017-04-17] MEDS ORDERED: PREDNISONE PO SCH (10:00)
[2017-04-17] MEDS ORDERED: CINACALCET HYDROCHLORIDE PO SCH (10:00)
[2017-04-17] MEDS ORDERED: ENALAPRIL MALEATE 2.5 MG TAB PO SCH (10:00)
[2017-04-17] MEDS: PIPERACILLIN-TAZOB 2.25GM 50 ML IV SCH ×2 (10:23→22:11)
[2017-04-17] MEDS: FUROSEMIDE 40 MG/4 ML VIAL IV SCH (10:24)
[2017-04-17] MEDS: AZITHROMYCIN 500MG/ 250ML 250 ML IV SCH (10:24)
[2017-04-17] MEDS: predniSONE 5 MG TAB PO SCH (10:25)
[2017-04-17] MEDS: MULTIPLE VITAMIN TAB PO SCH (10:26)
[2017-04-17] MEDS: CARVEDILOL 3.125 MG TAB PO SCH ×2 (10:26→22:11)
[2017-04-17] MEDS: amLODIPine BESYLATE 5 MG TAB PO SCH (10:27)
[2017-04-17] MEDS: GABAPENTIN 100 MG CAP PO SCH ×2 (10:27→22:12)
[2017-04-17] MEDS: ALLOPURINOL 100 MG TAB PO SCH (10:28)
[2017-04-17] MEDS: PANTOPRAZOLE 40 MG TAB PO SCH (10:28)
[2017-04-17] MEDS: ENOXAPARIN SOD 30 MG/0.3 ML SYRINGE SC SCH (10:28)
[2017-04-17] MEDS: TACROLIMUS 1 MG CAP PO SCH ×2 (10:43→22:12)
[2017-04-17] MEDS: CINACALCET HYDROCHLORIDE 30 MG TAB PO SCH (10:44)
[2017-04-17] MEDS ORDERED: VANCOMYCIN 1GM/250ML 250 ML IV ONE ×2 (12:00→16:00)
[2017-04-17] MEDS ORDERED: methylPREDNISolone SOD SUCC 40 MG/ML VL IV ONE (12:00)
[2017-04-17 13:00] VITALS: BP 123/74
[2017-04-17 17:00] VITALS: BP 131/80
[2017-04-17] MEDS ORDERED: OSELTAMIVIR 30 MG CAP PO PRN (17:00)
[2017-04-17] MEDS: TAMSULOSIN HYDROCHLORIDE 0.4 MG CAP PO SCH (18:23)
[2017-04-17] MEDS: methylPREDNISolone SOD SUCC 40 MG/ML VL IV SCH (20:35)
[2017-04-17] MEDS: ATORVASTATIN 20 MG TAB PO SCH (22:00)
[2017-04-17 22:10] VITALS: BP 133/83
[2017-04-18 04:00] VITALS: BP 150/74
[2017-04-18] MEDS: methylPREDNISolone SOD SUCC 40 MG/ML VL IV SCH ×3 (04:01→20:17)
[2017-04-18] MEDS: SODIUM CHLOR 0.9% PF (SALINE LOCK) 10ML VIAL IV SCH ×3 (05:41→21:54)
[2017-04-18] MEDS: ALBUTEROL SULF 2.5 MG/0.5ML(0.5%) NEB SOLN NEB SCH ×4 (07:04→18:55)
[2017-04-18 07:23] LABS: Basophils # (auto) 0 uL; Basophils % (auto) 0.2 % (0.0-2.0); Eosinophils # (auto) 0 uL; Eosinophils % (auto) 0.1 % (0.0-7.0); Hematocrit 36.1 % (41.0-53.0); Hemoglobin 12.1 g/dL (13.5-17.5); Lymphocytes # (auto) 0.3 uL; Lymphocytes % (auto) 7.6 % (10.0-50.0); Mean Corpuscular Hemoglobin 33.4 pg (28.0-32.0); Mean Corpuscular Hgb Conc. 33.6 g/dL (32.0-36.0); Mean Corpuscular Volume 99.3 fL (80.0-100.0); Monocytes # (auto) 0.1 uL; Monocytes % (auto) 3.5 % (0.0-12.0); Neutrophils # (auto) 3.4 uL; Neutrophils % (auto) 88.6 % (37.0-80.0); Nucleated Red Blood Cells % 0.1 %; Platelet Count (auto) 143 10^3/uL (140-450); Red Blood Cells 3.63 10^6/uL (4.5-5.90); Red Cell Distribution Width 14.4 % (11.8-14.3); White Blood Cell 3.8 10^3/uL (4.4-10.8)
[2017-04-18 07:54] LABS: Albumin 3.1 g/dL (3.4-5.0); BUN/Creatinine Ratio 5.3; Bilirubin, Total 0.5 mg/dL (0.2-1.0); Calcium 8.8 mg/dL (8.5-10.1); Phosphorus 6.9 mg/dL (2.5-4.90); Potassium 4.9 mmol/L (3.5-5.1); Total Protein 8.8 g/dL (6.4-8.2); Uric Acid 6.3 mg/dL (3.5-7.2)
[2017-04-18] MEDS: FUROSEMIDE 40 MG/4 ML VIAL IV SCH (08:50)
[2017-04-18] MEDS: SEVELAMER 800 MG TAB PO SCH ×3 (08:50→18:45)
[2017-04-18 08:53] VITALS: BP 117/65
[2017-04-18] MEDS: AZITHROMYCIN 500MG/ 250ML 250 ML IV SCH (08:55)
[2017-04-18] MEDS: PIPERACILLIN-TAZOB 2.25GM 50 ML IV SCH ×2 (08:55→21:54)
[2017-04-18] MEDS: predniSONE 5 MG TAB PO SCH (08:55)
[2017-04-18] MEDS: CARVEDILOL 3.125 MG TAB PO SCH ×2 (08:56→21:54)
[2017-04-18] MEDS: MULTIPLE VITAMIN TAB PO SCH (08:56)
[2017-04-18] MEDS: GABAPENTIN 100 MG CAP PO SCH ×2 (08:56→21:55)
[2017-04-18] MEDS: amLODIPine BESYLATE 5 MG TAB PO SCH (08:57)
[2017-04-18] MEDS: PANTOPRAZOLE 40 MG TAB PO SCH (08:57)
[2017-04-18] MEDS: ENOXAPARIN SOD 30 MG/0.3 ML SYRINGE SC SCH (08:57)
[2017-04-18] MEDS: ALLOPURINOL 100 MG TAB PO SCH (08:57)
[2017-04-18] MEDS ORDERED: ENOXAPARIN SOD 60 MG/0.6 ML SYRINGE SC SCH (10:00)
[2017-04-18] MEDS: CINACALCET HYDROCHLORIDE 30 MG TAB PO SCH (10:00)
[2017-04-18] MEDS ORDERED: ENOXAPARIN SOD 30 MG/0.3 ML SYRINGE SC SCH (10:00)
[2017-04-18] MEDS: HYDROcodone-ACET 5/325MG TAB PO PRN ×2 (12:30→18:35)
[2017-04-18 12:43] VITALS: BP 123/73
[2017-04-18 16:53] VITALS: BP 132/79
[2017-04-18] MEDS: TAMSULOSIN HYDROCHLORIDE 0.4 MG CAP PO SCH (18:46)
[2017-04-18] MEDS: ATORVASTATIN 20 MG TAB PO SCH (21:55)
[2017-04-19] MEDS: HYDROcodone-ACET 5/325MG TAB PO PRN ×2 (00:37→10:33)
[2017-04-19] MEDS: ALBUTEROL SULF 2.5 MG/0.5ML(0.5%) NEB SOLN NEB SCH ×4 (01:24→19:58)
[2017-04-19] MEDS ORDERED: SODIUM CHL 0.9% 1000 ML BAG XX ONE (04:00)
[2017-04-19] MEDS: methylPREDNISolone SOD SUCC 40 MG/ML VL IV SCH ×3 (04:07→20:18)
[2017-04-19 05:00] VITALS: BP 128/76
[2017-04-19] MEDS: SODIUM CHLOR 0.9% PF (SALINE LOCK) 10ML VIAL IV SCH ×3 (05:37→21:18)
[2017-04-19 08:00] VITALS: BP 155/76
[2017-04-19 08:30] VITALS: BP 155/76
[2017-04-19] MEDS: SEVELAMER 800 MG TAB PO SCH ×3 (09:03→17:56)
[2017-04-19] MEDS: MULTIPLE VITAMIN TAB PO SCH (09:03)
[2017-04-19] MEDS: AZITHROMYCIN 500MG/ 250ML 250 ML IV SCH (09:04)
[2017-04-19] MEDS: ALLOPURINOL 100 MG TAB PO SCH (09:04)
[2017-04-19] MEDS: PANTOPRAZOLE 40 MG TAB PO SCH (09:04)
[2017-04-19] MEDS: GABAPENTIN 100 MG CAP PO SCH ×2 (09:04→21:20)
[2017-04-19] MEDS: HEPARIN SODIUM (PORCINE) 5000 UNITS/ML 1ML VIAL SC SCH ×2 (10:00→21:28)
[2017-04-19] MEDS: amLODIPine BESYLATE 5 MG TAB PO SCH (10:00)
[2017-04-19] MEDS: CARVEDILOL 3.125 MG TAB PO SCH ×2 (10:00→21:19)
[2017-04-19 12:42] VITALS: BP 136/91
[2017-04-19] MEDS: PIPERACILLIN-TAZOB 2.25GM 50 ML IV SCH (14:40)
[2017-04-19] MEDS: CINACALCET HYDROCHLORIDE 30 MG TAB PO SCH (14:44)
[2017-04-19 16:55] VITALS: BP 132/73
[2017-04-19] MEDS: TAMSULOSIN HYDROCHLORIDE 0.4 MG CAP PO SCH (17:56)
[2017-04-19 18:43] VITALS: BP 126/83
[2017-04-19] MEDS: ATORVASTATIN 20 MG TAB PO SCH (21:19)
[2017-04-20] MEDS: PIPERACILLIN-TAZOB 2.25GM 50 ML IV SCH (00:33)
[2017-04-20 00:40] VITALS: BP 125/74
[2017-04-20] MEDS: ALBUTEROL SULF 2.5 MG/0.5ML(0.5%) NEB SOLN NEB SCH ×4 (00:55→18:57)
[2017-04-20 02:16] VITALS: BP 125/74
[2017-04-20] MEDS: methylPREDNISolone SOD SUCC 40 MG/ML VL IV SCH ×3 (03:31→20:00)
[2017-04-20] MEDS: SODIUM CHLOR 0.9% PF (SALINE LOCK) 10ML VIAL IV SCH ×3 (05:36→22:36)
[2017-04-20 05:37] VITALS: BP 145/82
[2017-04-20 06:37] LABS: Basophils # (auto) 0 uL; Basophils % (auto) 0.1 % (0.0-2.0); Eosinophils # (auto) 0 uL; Hemoglobin 11.4 g/dL (13.5-17.5); Lymphocytes # (auto) 0.3 uL; Lymphocytes % (auto) 3.6 % (10.0-50.0); Mean Corpuscular Hemoglobin 33.3 pg (28.0-32.0); Mean Corpuscular Hgb Conc. 33.4 g/dL (32.0-36.0); Mean Corpuscular Volume 99.5 fL (80.0-100.0); Monocytes # (auto) 0.1 uL; Monocytes % (auto) 1.7 % (0.0-12.0); Neutrophils # (auto) 7.1 uL; Neutrophils % (auto) 94.6 % (37.0-80.0); Platelet Count (auto) 147 10^3/uL (140-450); Red Blood Cells 3.42 10^6/uL (4.5-5.90); Red Cell Distribution Width 14.8 % (11.8-14.3); White Blood Cell 7.5 10^3/uL (4.4-10.8)
[2017-04-20 06:58] LABS: Potassium 4.5 mmol/L (3.5-5.1)
[2017-04-20 07:20] LABS: BUN/Creatinine Ratio 5.8; Bilirubin, Total 0.7 mg/dL (0.2-1.0); Calcium 7.9 mg/dL (8.5-10.1); Total Protein 7.9 g/dL (6.4-8.2)
[2017-04-20] MEDS: SEVELAMER 800 MG TAB PO SCH ×3 (08:27→18:14)
[2017-04-20 09:00] VITALS: BP 128/76
[2017-04-20] MEDS: CINACALCET HYDROCHLORIDE 30 MG TAB PO SCH (10:00)
[2017-04-20] MEDS ORDERED: SODIUM CHL 0.9% 1000 ML BAG XX ONE (10:15)
[2017-04-20] MEDS: GABAPENTIN 100 MG CAP PO SCH ×2 (10:36→22:36)
[2017-04-20] MEDS: MULTIPLE VITAMIN TAB PO SCH (10:36)
[2017-04-20] MEDS: PANTOPRAZOLE 40 MG TAB PO SCH (10:36)
[2017-04-20] MEDS: ALLOPURINOL 100 MG TAB PO SCH (10:36)
[2017-04-20] MEDS: AZITHROMYCIN 500MG/ 250ML 250 ML IV SCH (10:37)
[2017-04-20] MEDS: amLODIPine BESYLATE 5 MG TAB PO SCH (10:37)
[2017-04-20] MEDS: CARVEDILOL 3.125 MG TAB PO SCH ×2 (10:37→22:35)
[2017-04-20] MEDS: HEPARIN SODIUM (PORCINE) 5000 UNITS/ML 1ML VIAL SC SCH ×2 (10:47→22:37)
[2017-04-20] MEDS: HYDROcodone-ACET 5/325MG TAB PO PRN (10:49)
[2017-04-20] MEDS: cefTRIAXone 1GM/10ml IVPUSH 10 ML IV SCH (11:55)
[2017-04-20 13:00] VITALS: BP 146/82
[2017-04-20] MEDS: TAMSULOSIN HYDROCHLORIDE 0.4 MG CAP PO SCH (18:14)
[2017-04-20 22:00] VITALS: BP 130/78
[2017-04-20] MEDS: ATORVASTATIN 20 MG TAB PO SCH (22:36)
[2017-04-21] MEDS: ALBUTEROL SULF 2.5 MG/0.5ML(0.5%) NEB SOLN NEB SCH ×4 (00:58→18:57)
[2017-04-21] MEDS: methylPREDNISolone SOD SUCC 40 MG/ML VL IV SCH ×3 (04:49→22:56)
[2017-04-21 05:51] VITALS: BP 148/81
[2017-04-21] MEDS: SODIUM CHLOR 0.9% PF (SALINE LOCK) 10ML VIAL IV SCH ×3 (06:03→22:57)
[2017-04-21] MEDS: SEVELAMER 800 MG TAB PO SCH ×3 (08:00→18:15)
[2017-04-21 08:35] VITALS: BP 147/82
[2017-04-21] MEDS: HEPARIN SODIUM (PORCINE) 5000 UNITS/ML 1ML VIAL SC SCH ×2 (10:00→22:58)
[2017-04-21] MEDS: cefTRIAXone 1GM/10ml IVPUSH 10 ML IV SCH (10:38)
[2017-04-21] MEDS: AZITHROMYCIN 500MG/ 250ML 250 ML IV SCH (10:38)
[2017-04-21] MEDS: MULTIPLE VITAMIN TAB PO SCH (10:39)
[2017-04-21] MEDS: CARVEDILOL 3.125 MG TAB PO SCH ×2 (10:39→22:56)
[2017-04-21] MEDS: GABAPENTIN 100 MG CAP PO SCH ×2 (10:40→22:55)
[2017-04-21] MEDS: amLODIPine BESYLATE 5 MG TAB PO SCH (10:40)
[2017-04-21] MEDS: CINACALCET HYDROCHLORIDE 30 MG TAB PO SCH (10:41)
[2017-04-21] MEDS: PANTOPRAZOLE 40 MG TAB PO SCH (10:41)
[2017-04-21] MEDS: ALLOPURINOL 100 MG TAB PO SCH (10:41)
[2017-04-21] MEDS: HYDROcodone-ACET 5/325MG TAB PO PRN (12:10)
[2017-04-21] MEDS ORDERED: methylPREDNISolone SOD SUCC 40 MG/ML VL IV ONE (12:30)
[2017-04-21 12:43] VITALS: BP 112/71
[2017-04-21 17:00] VITALS: BP 111/70
[2017-04-21] MEDS: Novasource Renal 8 Ounces PO SCH (18:15)
[2017-04-21] MEDS: TAMSULOSIN HYDROCHLORIDE 0.4 MG CAP PO SCH (18:15)
[2017-04-21 22:00] VITALS: BP 112/72
[2017-04-21] MEDS: ATORVASTATIN 20 MG TAB PO SCH (22:55)
[2017-04-22] MEDS: ALBUTEROL SULF 2.5 MG/0.5ML(0.5%) NEB SOLN NEB SCH ×3 (00:50→18:37)
[2017-04-22 05:00] VITALS: BP 136/81
[2017-04-22] MEDS: SODIUM CHLOR 0.9% PF (SALINE LOCK) 10ML VIAL IV SCH ×3 (05:43→22:42)
[2017-04-22 05:44] LABS: Basophils # (auto) 0 uL; Basophils % (auto) 0.1 % (0.0-2.0); Eosinophils # (auto) 0 uL; Hematocrit 36.2 % (41.0-53.0); Hemoglobin 12.2 g/dL (13.5-17.5); Lymphocytes # (auto) 0.4 uL; Lymphocytes % (auto) 5.8 % (10.0-50.0); Mean Corpuscular Hemoglobin 33.5 pg (28.0-32.0); Mean Corpuscular Hgb Conc. 33.7 g/dL (32.0-36.0); Mean Corpuscular Volume 99.2 fL (80.0-100.0); Monocytes # (auto) 0.2 uL; Monocytes % (auto) 2.9 % (0.0-12.0); Neutrophils % (auto) 91.2 % (37.0-80.0); Platelet Count (auto) 194 10^3/uL (140-450); Red Blood Cells 3.65 10^6/uL (4.5-5.90); Red Cell Distribution Width 14.6 % (11.8-14.3); White Blood Cell 6.6 10^3/uL (4.4-10.8)
[2017-04-22 06:08] LABS: BUN/Creatinine Ratio 6.8
[2017-04-22] MEDS: SEVELAMER 800 MG TAB PO SCH ×3 (08:19→18:05)
[2017-04-22] MEDS: cefTRIAXone 1GM/10ml IVPUSH 10 ML IV SCH (08:19)
[2017-04-22] MEDS: Novasource Renal 8 Ounces PO SCH ×2 (08:19→18:05)
[2017-04-22 09:00] VITALS: BP 123/72
[2017-04-22] MEDS: methylPREDNISolone SOD SUCC 40 MG/ML VL IV SCH ×2 (10:01→22:42)
[2017-04-22] MEDS: CARVEDILOL 3.125 MG TAB PO SCH ×2 (10:03→22:41)
[2017-04-22] MEDS: MULTIPLE VITAMIN TAB PO SCH (10:12)
[2017-04-22] MEDS: PANTOPRAZOLE 40 MG TAB PO SCH (10:12)
[2017-04-22] MEDS: amLODIPine BESYLATE 5 MG TAB PO SCH (10:12)
[2017-04-22] MEDS: GABAPENTIN 100 MG CAP PO SCH ×2 (10:12→22:43)
[2017-04-22] MEDS: ALLOPURINOL 100 MG TAB PO SCH (10:13)
[2017-04-22] MEDS: AZITHROMYCIN 500MG/ 250ML 250 ML IV SCH (11:27)
[2017-04-22] MEDS: CINACALCET HYDROCHLORIDE 30 MG TAB PO SCH (11:28)
[2017-04-22] MEDS: HEPARIN SODIUM (PORCINE) 5000 UNITS/ML 1ML VIAL SC SCH ×2 (11:33→22:44)
[2017-04-22 13:00] VITALS: BP 125/72
[2017-04-22] MEDS ORDERED: SODIUM CHL 0.9% 1000 ML BAG XX ONE (14:15)
[2017-04-22 17:00] VITALS: BP 123/76
[2017-04-22] MEDS: TAMSULOSIN HYDROCHLORIDE 0.4 MG CAP PO SCH (18:05)
[2017-04-22 22:00] VITALS: BP 115/70
[2017-04-22] MEDS: ATORVASTATIN 20 MG TAB PO SCH (22:39)
[2017-04-23] MEDS: ALBUTEROL SULF 2.5 MG/0.5ML(0.5%) NEB SOLN NEB SCH ×3 (00:01→13:00)
[2017-04-23 05:00] VITALS: BP 137/78
[2017-04-23] MEDS: SODIUM CHLOR 0.9% PF (SALINE LOCK) 10ML VIAL IV SCH (06:05)
[2017-04-23 06:32] LABS: Basophils # (auto) 0 uL; Basophils % (auto) 0.1 % (0.0-2.0); Eosinophils # (auto) 0 uL; Hematocrit 35.6 % (41.0-53.0); Hemoglobin 11.9 g/dL (13.5-17.5); Lymphocytes # (auto) 0.4 uL; Lymphocytes % (auto) 6.5 % (10.0-50.0); Mean Corpuscular Hemoglobin 33.2 pg (28.0-32.0); Mean Corpuscular Hgb Conc. 33.4 g/dL (32.0-36.0); Mean Corpuscular Volume 99.3 fL (80.0-100.0); Monocytes # (auto) 0.2 uL; Monocytes % (auto) 2.7 % (0.0-12.0); Neutrophils # (auto) 5.2 uL; Neutrophils % (auto) 90.7 % (37.0-80.0); Platelet Count (auto) 203 10^3/uL (140-450); Red Blood Cells 3.59 10^6/uL (4.5-5.90); Red Cell Distribution Width 14.5 % (11.8-14.3); White Blood Cell 5.8 10^3/uL (4.4-10.8)
[2017-04-23 06:46] LABS: Calcium 8.6 mg/dL (8.5-10.1)
[2017-04-23 06:56] LABS: BUN/Creatinine Ratio 7.9
[2017-04-23 07:47] LABS: Potassium 5.8 mmol/L (3.5-5.1)
[2017-04-23 08:00] VITALS: BP 132/78
[2017-04-23] MEDS: SEVELAMER 800 MG TAB PO SCH ×2 (08:02→12:37)
[2017-04-23] MEDS: Novasource Renal 8 Ounces PO SCH (08:04)
[2017-04-23] MEDS ORDERED: AZITHROMYCIN 250 MG TAB PO SCH (10:00)
[2017-04-23] MEDS: GABAPENTIN 100 MG CAP PO SCH (10:12)
[2017-04-23] MEDS: MULTIPLE VITAMIN TAB PO SCH (10:12)
[2017-04-23] MEDS: amLODIPine BESYLATE 5 MG TAB PO SCH (10:15)
[2017-04-23] MEDS: PANTOPRAZOLE 40 MG TAB PO SCH (10:16)
[2017-04-23] MEDS: ALLOPURINOL 100 MG TAB PO SCH (10:16)
[2017-04-23] MEDS: CARVEDILOL 3.125 MG TAB PO SCH (10:16)
[2017-04-23] MEDS: HEPARIN SODIUM (PORCINE) 5000 UNITS/ML 1ML VIAL SC SCH (10:20)
[2017-04-23] MEDS: HYDROcodone-ACET 5/325MG TAB PO PRN (11:13)
[2017-04-23] MEDS: methylPREDNISolone SOD SUCC 40 MG/ML VL IV SCH (12:47)
[2017-04-23] MEDS: CINACALCET HYDROCHLORIDE 30 MG TAB PO SCH (12:48)
[2017-04-23 13:00] VITALS: BP 127/80
[2017-04-23 13:40] VITALS: BP 132/78
[2017-04-23 13:40] LABS: BUN/Creatinine Ratio 6.9; Potassium 4.1 mmol/L (3.5-5.1)
== END 2017-04-23 17:10 | disposition home or self-care (01) | DRG 139 ==
LOC: ER 11:10 → TELE 11:11 → TELE-CENTR 17:17
PROVIDERS: ADMIT Internal Medicine; ATTEND Internal Medicine
PROC: 5A1D70Z Performance of Urinary Filtration, Intermittent, Less than 6 Hours Per Day (ICD-10-PCS; principal; 2017-04-19)
PROC: 5A1D70Z Performance of Urinary Filtration, Intermittent, Less than 6 Hours Per Day (ICD-10-PCS; 2017-04-21)
PROC: 5A1D70Z Performance of Urinary Filtration, Intermittent, Less than 6 Hours Per Day (ICD-10-PCS; 2017-04-23)
DX: J18.1 Lobar pneumonia, unspecified organism (principal); I50.31 Acute diastolic (congestive) heart failure; N18.6 End stage renal disease; E11.22 Type 2 diabetes mellitus with diabetic chronic kidney disease; I13.2 Hypertensive heart and chronic kidney disease with heart failure and with stage 5 chronic kidney disease, or end stage renal disease; E87.5 Hyperkalemia; D63.8 Anemia in other chronic diseases classified elsewhere; M10.9 Gout, unspecified; E78.5 Hyperlipidemia, unspecified; E83.39 Other disorders of phosphorus metabolism; H54.8 Legal blindness, as defined in USA; J98.01 Acute bronchospasm; K21.9 Gastro-esophageal reflux disease without esophagitis; Z80.0 Family history of malignant neoplasm of digestive organs; Z82.1 Family history of blindness and visual loss; Z87.01 Personal history of pneumonia (recurrent); Z94.0 Kidney transplant status; Z99.2 Dependence on renal dialysis; Z84.89 Family history of other specified conditions
CPT/HCPCS: 36415; 71045; 71046; 78582; 80048; 80053; 80061; 80202; 82550; 83735; 83880; 84100; 84443; 84484; 84550; 85025; 87040; 87081; 87804; 90935; 93005; 93306; 94640; 96365; 96367; 96375; J1642; J2543; J7507

== ENCOUNTER 2017-07-17 11:24 | Emergency (ER) | payer OTHER ==
[~2017-07-17] VITALS: Ht 170.2 cm; Wt 1.6 kg
[~2017-07-17 11:24] MED LIST changes: +ALL100T PO; -AMLO10TA2 PO; +CINA60TA PO; -CINA90TA PO; -CLO01T PO; +DIPH25CA66 PO; +FERR-20 PO; -FURO20TA PO; +LEVO25TA6 PO; +PRE5T PO; -PRED5PAK2 PO; -SIMV10TA73 PO; -[UNRECOGNIZED DRUG - CODE] PO
[2017-07-17 11:37] VITALS: BP 121/72
[2017-07-17] MEDS ORDERED: traMADol HCL 50 MG TAB PO ONE (12:30)
[2017-07-17] MEDS ORDERED: cefTRIAXone SOD 1,000 MG VL IM ONE (12:30)
== END 2017-07-17 13:00 | disposition home or self-care (01) ==
LOC: ER 11:24
DX: K04.7 Periapical abscess without sinus (principal); I13.2 Hypertensive heart and chronic kidney disease with heart failure and with stage 5 chronic kidney disease, or end stage renal disease; N18.6 End stage renal disease; I50.9 Heart failure, unspecified; K21.9 Gastro-esophageal reflux disease without esophagitis; E78.5 Hyperlipidemia, unspecified; M10.9 Gout, unspecified
CPT/HCPCS: 96372; 99283; J0696

== ENCOUNTER 2018-03-04 11:27 | Emergency (ER) | payer OTHER ==
[~2018-03-04] VITALS: Ht 167.6 cm; Wt 55.8 kg
[~2018-03-04 11:27] MED LIST changes: +CLIN1CAP4 PO; -DIPH25CA66 PO; -PROGRAF PO; +SACC250C PO; -[UNRECOGNIZED DRUG - CODE] EX
[2018-03-04 11:43] VITALS: BP 143/84
[2018-03-04] MEDS ORDERED: cefTRIAXone SOD 1,000 MG VL IM ONE (12:00)
== END 2018-03-04 12:41 | disposition home or self-care (01) ==
LOC: ER 11:27
DX: R23.8 Other skin changes (principal); K21.9 Gastro-esophageal reflux disease without esophagitis; M10.9 Gout, unspecified; E78.5 Hyperlipidemia, unspecified; I13.2 Hypertensive heart and chronic kidney disease with heart failure and with stage 5 chronic kidney disease, or end stage renal disease; N18.6 End stage renal disease; I50.9 Heart failure, unspecified; Z99.2 Dependence on renal dialysis; Z91.041 Radiographic dye allergy status; Z79.899 Other long term (current) drug therapy
CPT/HCPCS: 96372; 99283; J0696

== ENCOUNTER 2018-07-21 16:34 | Inpatient (IN) | payer OTHER ==
[~2018-07-21] VITALS: Ht 170.2 cm; Wt 57.1 kg
[~2018-07-21 16:34] MED LIST changes: -CLIN1CAP4 PO; +CLIN300C8 PO
[2018-07-21 17:47] LABS: Basophils # (auto) 0.1 uL; Eosinophils # (auto) 0 uL; Eosinophils % (auto) 0.4 % (0.0-7.0); Hematocrit 40.5 % (41.0-53.0); Hemoglobin 13.6 g/dL (13.5-17.5); Lymphocytes # (auto) 0.6 uL; Lymphocytes % (auto) 11.1 % (10.0-50.0); Mean Corpuscular Hemoglobin 33.8 pg (28.0-32.0); Mean Corpuscular Hgb Conc. 33.5 g/dL (32.0-36.0); Monocytes # (auto) 0.3 uL; Monocytes % (auto) 5.9 % (0.0-12.0); Neutrophils # (auto) 4.4 uL; Neutrophils % (auto) 80.6 % (37.0-80.0); Platelet Count (auto) 171 10^3/uL (140-450); Red Blood Cells 4.02 10^6/uL (4.5-5.90); Red Cell Distribution Width 14.2 % (11.8-14.3); White Blood Cell 5.4 10^3/uL (4.4-10.8)
[2018-07-21 18:05] LABS: Albumin 3.6 g/dL (3.4-5.0); BUN/Creatinine Ratio 5.9; Calcium 8.4 mg/dL (8.5-10.1); Potassium 4.4 mmol/L (3.5-5.1)
[2018-07-21 18:08] LABS: Salicylate < 1.7 mg/dL (2.8-20.0)
[2018-07-21 18:09] LABS: Acetaminophen < 2.0 ug/mL (10-30)
[2018-07-21 18:31] LABS: Bilirubin, Total 0.6 mg/dL (0.2-1.0); Total Protein 8.1 g/dL (6.4-8.2)
[2018-07-21] MEDS ORDERED: SODIUM CHLORIDE 0.9% 500 ML IV ONE (18:45)
[2018-07-21] MEDS ORDERED: MORPHINE SULF INJ 2 MG/ML SYRINGE 1ML IV PRN (20:30)
[2018-07-21] MEDS ORDERED: NITROGLYCERIN 0.4 MG SL TAB SL PRN (20:30)
[2018-07-21] MEDS ORDERED: ONDANSETRON HCL 4 MG/2 ML VIAL IV PRN (20:30)
[2018-07-21] MEDS ORDERED: TEMAZEPAM 15 MG CAP PO PRN (20:30)
--- NOTE | 2018-07-21 21:45 | NUR ---
[facility] unit after SBAR received. Patient oriented to Kimberly abreu RN, unit, room, bed, and unit policies regarding patient care and visiting hours. Patient now on continuous telemetry monitoring, tele box # 15 and telemetry reading on arrival to unit is SINUS RHYTHM AT 68. Patient placed on bedside oxygen, weighed by bedscale and encouraged to call if they need something. All questions and concerns addressed, patient verbalized understanding. Note: SITTER AT BEDSIDE, SUICIDE PRECAUTION INITIATED.
[2018-07-21] MEDS: GABAPENTIN 100 MG CAP PO SCH (22:19)
[2018-07-21] MEDS: TACROLIMUS 1 MG CAP PO SCH (22:19)
[2018-07-21 22:24] VITALS: BP 140/80
[2018-07-22] VITALS (7 sets, daily range): BP systolic 126–146; BP diastolic 71–88
--- NOTE | 2018-07-22 06:00 | NUR ---
PATIENT RESTING ON BED WITH EYES CLOSED, NO RESPIRATORY DISTRESS NOTED. AROUSABLE TO NAME. DENIES PAIN OR DISCOMFORT AT THIS TIME. CONTINUE PATIENT CARE.
[2018-07-22 06:06] LABS: Basophils # (auto) 0 uL; Basophils % (auto) 0.3 % (0.0-2.0); Eosinophils # (auto) 0.2 uL; Eosinophils % (auto) 4.7 % (0.0-7.0); Hematocrit 38.2 % (41.0-53.0); Hemoglobin 12.7 g/dL (13.5-17.5); Lymphocytes % (auto) 24.4 % (10.0-50.0); Mean Corpuscular Hemoglobin 33.4 pg (28.0-32.0); Mean Corpuscular Hgb Conc. 33.4 g/dL (32.0-36.0); Monocytes # (auto) 0.3 uL; Monocytes % (auto) 7.4 % (0.0-12.0); Neutrophils # (auto) 2.6 uL; Neutrophils % (auto) 63.2 % (37.0-80.0); Nucleated Red Blood Cells % 0.1 %; Platelet Count (auto) 164 10^3/uL (140-450); Red Blood Cells 3.82 10^6/uL (4.5-5.90); White Blood Cell 4.1 10^3/uL (4.4-10.8)
[2018-07-22] MEDS: LEVOTHYROXINE SODIUM 25 MCG TAB PO SCH (06:08)
[2018-07-22 06:33] LABS: Albumin 3.2 g/dL (3.4-5.0); BUN/Creatinine Ratio 6.6; Bilirubin, Total 0.5 mg/dL (0.2-1.0); Calcium 8.1 mg/dL (8.5-10.1); Total Protein 7.2 g/dL (6.4-8.2)
[2018-07-22] MEDS ORDERED: MIR30T PO (06:48)
--- NOTE | 2018-07-22 07:25 | NUR ---
Opening Shift Note Received report from Octavio STEPHENS. Assumed care of patient, awake and more alert. No S/S of distress/SOB or pain. Has a sitter at bedside. For tele-psych today, and patient educated about it. Instructed on POC and to call for assist PRN, will continue to monitor for changes Q1hr and PRN.
[2018-07-22] MEDS: FERROUS SULFATE 325 MG TAB PO SCH ×2 (08:25→18:32)
[2018-07-22] MEDS: SEVELAMER 800 MG TAB PO SCH ×3 (08:25→18:33)
--- NOTE | 2018-07-22 09:05 | NUR ---
CALLED-IN TELE PSYCH. PSYCH MD WILL BE DR MAGAÑA.
[2018-07-22] MEDS: predniSONE 5 MG TAB PO SCH (09:51)
[2018-07-22] MEDS: GABAPENTIN 100 MG CAP PO SCH ×2 (09:51→22:25)
[2018-07-22] MEDS ORDERED: FAMOTIDINE 20 MG TAB PO SCH (10:00)
[2018-07-22] MEDS: TACROLIMUS 1 MG CAP PO SCH ×2 (10:31→22:32)
--- NOTE | 2018-07-22 12:18 | NUR ---
TELE PSYCH DONE, SAID NO NEED FOR 5150 HOLD BUT PATIENT NEEDS TO BE FOLLOWED UP BY PSYCHIATRIST. WILL WAIT FOR FAX REPORT FOR THE HARD COPY OF RECOMMENDATIONS.
--- NOTE | 2018-07-22 13:00 | NUR ---
TELE PSYCH FAX REPORT RECEIVED, PLACED IN CHART.
--- NOTE | 2018-07-22 16:45 | NUR ---
Dr. Salguero at bedside. Informed that Ana, social media community manager, informed primary nurse that they do not schedule appointment with psycho therapist. Patient needs to have referral letter from PCP to set an appointment with the psycho therapist. Dr. Springer made aware.
[2018-07-22] MEDS ORDERED: TAMSULOSIN HYDROCHLORIDE 0.4 MG CAP PO SCH (18:00)
--- NOTE | 2018-07-22 20:00 | NUR ---
Opening Shift Note Assumed care of patient, awake and alert. No S/S of distress/SOB or pain. Insructed on POC and to call for assist PRN, will continue to monitor for changes Q1hr and PRN. Patient has sitter at bedside.
[2018-07-22] MEDS ORDERED: MIRTAZAPINE 30 MG TAB PO SCH (22:00)
[2018-07-23 05:00] VITALS: BP 107/67
[2018-07-23 05:39] LABS: Hematocrit 38.1 % (41.0-53.0); Hemoglobin 12.6 g/dL (13.5-17.5); Mean Corpuscular Hemoglobin 33.3 pg (28.0-32.0); Mean Corpuscular Volume 100.9 fL (80.0-100.0); Platelet Count (auto) 162 10^3/uL (140-450); Red Blood Cells 3.78 10^6/uL (4.5-5.90); Red Cell Distribution Width 14.1 % (11.8-14.3); White Blood Cell 3.9 10^3/uL (4.4-10.8)
[2018-07-23 05:45] LABS: Band Neutrophils % (manual) 0; Basophils % (manual) 0 (0.0-2.0); Blast Cells 0; Metamyelocytes % 0; Myelocytes % 0; Promyelocytes % 0; Reactive Lymphocytes 0
[2018-07-23 06:00] LABS: BUN/Creatinine Ratio 7.2; Calcium 8.2 mg/dL (8.5-10.1); Potassium 4.6 mmol/L (3.5-5.1)
[2018-07-23] MEDS ORDERED: FAMOTIDINE 20 MG TAB PO SCH (06:00)
[2018-07-23] MEDS: LEVOTHYROXINE SODIUM 25 MCG TAB PO SCH (06:19)
[2018-07-23 06:41] LABS: Eosinophils % (manual) 3 (0-7); Lymphocytes % (manual) 31 (10.0-50.0); Monocytes % (manual) 8 (0-12)
--- NOTE | 2018-07-23 07:30 | NUR ---
Opening Shift Note Assumed care of patient, awake and alert. No S/S of distress/SOB or pain. Instructed on POC and to call for assist PRN, will continue to monitor. Bed locked in the lowest position. Bed rails up x2. Call light in reach. Sitter at the bedside.
[2018-07-23 08:12] LABS: % Iron Saturation 25.9 % (20-55)
[2018-07-23] MEDS: SEVELAMER 800 MG TAB PO SCH ×2 (08:20→11:39)
[2018-07-23] MEDS: FERROUS SULFATE 325 MG TAB PO SCH (08:20)
[2018-07-23 09:00] VITALS: BP 133/75
[2018-07-23] MEDS ORDERED: SODIUM CHL 0.9% 1000 ML BAG XX ONE (10:00)
[2018-07-23] MEDS ORDERED: TACROLIMUS 1 MG CAP PO SCH (10:25)
[2018-07-23] MEDS: predniSONE 5 MG TAB PO SCH (10:31)
[2018-07-23] MEDS: GABAPENTIN 100 MG CAP PO SCH (10:31)
--- NOTE | 2018-07-23 11:50 | NUR ---
HOUSEKEEPING COORDINATOR AT THE BEDSIDE
--- NOTE | 2018-07-23 12:30 | NUR ---
PATIENT CHART PER RESPOOLER PATIENTS HARD CHART WAS LAST SEEN ON PREVIOUS SHIFT. CALLED TELEPSYCH AND HAD THEM RE-FAX TELEPSYCH RECOMMENDATION AND PLACED IN NEW CHART. DR. IAM SADLER.
[2018-07-23 13:00] VITALS: BP 114/78
--- NOTE | 2018-07-23 15:30 | NUR ---
PATIENT EDUCATION PATIENT DENIES ANY CURRENT SUICIDAL IDEATION. PATIENT STATES, "I WAS JUST FEELING SAD AND DEPRESSED. I NEEDED MY MEDICATION. I DONT FEEL LIKE HURTING MYSELF ANYMORE. I WILL TAKE MY ANTIDEPRESSANT MEDICATION PRESCRIBED AND FILL IT TODAY." EDUCATED PATIENT ON SUICIDAL HOTLINE PER TELEPSYCH RECOMMENDATION. OFFERED TO PUT NUMBER IN PHONE AND PATIENT REFUSED AND STATES, "I ALREADY HAVE THAT NUMBER IN MY PHONE." PATIENT WAITING IN ROOM FOR RIDE.
--- NOTE | 2018-07-23 16:00 | NUR ---
DISCHARGE Discharge instructions given as ordered. Encourage to follow up with PMD as instructed. All questions and concerns addressed. Patient verbalized understanding. Medication reconciliation form completed and copy given to patient. IV removed with catheter intact, pressure dressing applied. Telemetry unit returned to ICU. Patient taken to vehicle via wheelchair with all personal belongings, accompanied by staff and family member. No distress noted at time of departure. Reinforced teaching on suicidal hotline. Family verbalized understanding.
[2018-07-23] MEDS ORDERED: TACROLIMUS 0.5 MG CAP PO SCH (22:00)
[2018-07-25 14:47] LABS: Hepatitis A Ab IgM Negative; Hepatitis B Core IgM Negative
[2018-07-25 14:48] LABS: Hepatitis B Surface Antigen Negative (Negative); Hepatitis C Antibody Negative (Negative)
== END 2018-07-23 17:50 | disposition home or self-care (01) | DRG 817 ==
LOC: EDBD 16:34 → ER 16:48 → TELE 20:32 → TELE-EAST 21:58
PROVIDERS: ADMIT Nurse Practitioner; ATTEND Internal Medicine Pulmonary Disease
PROC: 5A1D70Z Performance of Urinary Filtration, Intermittent, Less than 6 Hours Per Day (ICD-10-PCS; principal; 2018-07-23)
DX: T39.1X2A Poisoning by 4-Aminophenol derivatives, intentional self-harm, initial encounter (principal); I13.2 Hypertensive heart and chronic kidney disease with heart failure and with stage 5 chronic kidney disease, or end stage renal disease; N18.6 End stage renal disease; Z94.0 Kidney transplant status; I50.9 Heart failure, unspecified; D63.8 Anemia in other chronic diseases classified elsewhere; M10.9 Gout, unspecified; F32.9 Major depressive disorder, single episode, unspecified; H54.8 Legal blindness, as defined in USA; K21.9 Gastro-esophageal reflux disease without esophagitis; Z80.0 Family history of malignant neoplasm of digestive organs; Z82.1 Family history of blindness and visual loss; Z82.49 Family history of ischemic heart disease and other diseases of the circulatory system; Z99.2 Dependence on renal dialysis; Z91.5 Personal history of self-harm; Z79.899 Other long term (current) drug therapy; Y92.89 Other specified places as the place of occurrence of the external cause
CPT/HCPCS: 36415; 80048; 80053; 80074; 80197; 80320; 80329; 82306; 82728; 83540; 83550; 83970; 84550; 85007; 85025; 85027; 87081; 90935; 94761; 96360; G0378; J1642; J7507